=== PATIENT | female | born 1965 | race Caucasian/White ===

== ENCOUNTER 2022-03-20 05:08 | Observation (INO) ==
--- NOTE | 2022-02-13 12:11 | PAT Medication Instructions ---
Medication Instructions Date of Service February 13, 2022 Home Medications ascorbic acid (vitamin C) 100 mg tablet 100 mg PO DAILY calcium 100 mg capsule 100 mg PO QAM calcium phosphate,dibasic 77 mg-vitamin D3 400 unit tablet 1 tab PO QAM meloxicam 15 mg tablet 15 mg PO QAM PRN vitamin E 400 unit tablet 400 unit PO QAM ASK your surgeon for instructions meloxicam 15 mg tablet 15 mg PO QAM PRN STOP taking 2 weeks before surgery vitamin E 400 unit tablet 400 unit PO QAM DO NOT take the morning of surgery ascorbic acid (vitamin C) 100 mg tablet 100 mg PO DAILY calcium 100 mg capsule 100 mg PO QAM calcium phosphate,dibasic 77 mg-vitamin D3 400 unit tablet 1 tab PO QAM OTHERWISE NOTHING TO EAT OR DRINK AFTER MIDNIGHT Other Notes If you have any questions please call us at [phone] or [phone] or [phone] or [phone]
--- NOTE | 2022-02-18 10:26 | Anesthesiology Consultation ---
Date of Service February 18, 2022 Assessment & Plan (1) Encounter for pre-operative examination: - COVID screening: Per assessment on 02/18/2022: Travel screen negative, no known COVID-19 positive contacts or current COVID-19 related symptoms in past 2 weeks. Pt vaccinated. Surgeon arranging preop COVID testing, scheduled 03/18/2022. Awaiting results. Chart Review Chart Review: Acceptable Risk for Surgery and Patient seen in Pre Admission Testing Teaching & Discussion Pre-Anesthesia Teaching/Discussion Notes: Instructed NPO after midnight before surgery, except medications with 15 cc of water. Medication instructions provided according to the PAT guidelines. History Surgery Operation Date: 03/20/22 11:20 Proposed Procedures p Right Total Hip Arthroplasty Anterior - Nahum Farias DO Height/Weight Height: 5 ft 6 in Weight: 73.4 kg Allergies Allergy/AdvReac Type Severity Reaction Status Date / Time Penicillins Allergy Severe RASH Verified 02/13/22 07:43 Medications Home Medications Medication Instructions Recorded Confirmed Last Taken ascorbic acid (vitamin C) 100 mg 100 mg PO DAILY 02/13/22 02/13/22 Unknown tablet calcium 100 mg capsule 100 mg PO QAM 02/13/22 02/13/22 Unknown calcium phosphate,dibasic 77 1 tab PO QAM 02/13/22 02/13/22 Unknown mg-vitamin D3 400 unit tablet meloxicam 15 mg tablet 15 mg PO QAM PRN 02/13/22 02/13/22 Unknown vitamin E 400 unit tablet 400 unit PO QAM 02/13/22 02/13/22 Unknown Past Medical History Medical History (Updated 02/18/22 @ 10:35 by Esther Cooper PA-C) Granuloma annulare History of anesthesia reaction states had low bp after tubal History of blood transfusion 2013 s/p L KEYA Patient denies h/o stroke, seizures, heart attack, heart failure, DM, HTN, or blood clots. Exercise / Class Metabolic Activity II 4-5 Yardwork/Stairs/Walk up hill (denies CP or SOB with 1 FOS) Past Surgical History Surgical History History of bilateral tubal ligation S/P hip replacement 2013-left- states had blood loss and had to receive blood transfusion post-op Past Anesthesia History No Family Hx of Anesthesia Complications and Other (hypotension with tubal ligation) History of PONV No Hx of PONV and No Hx of Motion Sickness Social History Smoking Status: Never smoker Do You Dip or Chew Tobacco: No Hx Alcohol Use: Yes (occasionally) Alcohol type: wine and hard liquor alcohol intake frequency: a few times a month Hx Substance Use: No substance use type: does not use Review of Systems Patient denies chest pain, shortness of breath, dyspnea on exertion, snoring, witnessed apneas, reflux, fever, chills, cough, wheezing, or palpitations. Physical Exam Vital Signs Vitals BP 115/76 P 66 TEMP 98.3 SP02 98% on RA RESP 17 Physical Full cervical extension range of motion without pain TMD 3.5 finger breaths Mallampati Score 3 Dentition: intact, missing several left upper side teeth; denies loose or chipped teeth, implants or bridges Lungs: normal respiratory effort. Clear throughout to auscultation, no adventitious breath sounds Cardiac: regular rate and rhythm, no murmurs noted Carotid arteries: negative bruit bilat Lab Results Anesthesia Preop Results Results Anesthesia Widget: WBC 4.83 K/uL (4.8-10.8) 02/18/22 Hgb 13.1 g/dL (12.0-16.0) 02/18/22 Hct 39.9 % (37-47) 02/18/22 Plt 242 K/uL (130-400) 02/18/22 Na 143 mmol/L (136-145) 02/18/22 K 4.2 mmol/L (3.5-5.1) 02/18/22 Cl 108 mmol/L (98-107) H 02/18/22 CO2 32 mmol/L (21-32) 02/18/22 BUN 15 mg/dl (6-23) 02/18/22 Creat 0.59 mg/dl (0.6-1.2) L 02/18/22 Glucose Level 84 mg/dl (70-99(Fasting)) 02/18/22 PT 10.8 Seconds (9.0-12.0) 02/18/22 PTT 27.1 Seconds (21.0-31.0) 02/18/22 INR 1.0 (0.9-1.1) 02/18/22 Blood Type A Positive 02/18/22 Antibody Screen NEGATIVE 02/18/22 Testing Electrocardiogram Date: 02/18/22 NSR, rate 65 bpm Chest X-Ray Date: 02/18/22 No pneumothorax. No pleural effusions. The cardiac silhouette is top normal in size. Linear densities within the bilateral mid lung zones favor scarring or subsegmental atelectasis. Otherwise, the lungs are clear. No evidence for pulmonary edema. IMPRESSION: No acute process.
--- NOTE | 2022-03-19 13:23 | History & Physical Report ---
Date of Service March 19, 2022 Assessment & Plan (1) Osteoarthritis of right hip: We will proceed with a right anterior total hip arthroplasty. Postoperatively she will be started on aspirin for DVT prophylaxis and kept overnight in the hospital for postoperative medical management. She plans to use [facility] upon discharge. History of Present Illness Chief Complaint: Osteoarthritis right hip. Primary Care Provider: ANIBAL PCP Sarah is a pleasant 56-year-old female who had a left hip replacement done by Dr. Araujo in 2013. She is done well with that. Unfortunate she is dealing with right hip pain. X-rays and clinical examination have been diagnostic for advanced arthritis of the right hip. After failing conservative treatment, she has elected proceed with a right total hip arthroplasty. Allergies Allergy/AdvReac Type Severity Reaction Status Date / Time Penicillins Allergy Severe RASH Verified 02/13/22 07:43 Home Medications Medication Instructions Recorded Confirmed Type ascorbic acid (vitamin C) 100 mg 100 mg PO DAILY 02/13/22 02/13/22 History tablet calcium 100 mg capsule 100 mg PO QAM 02/13/22 02/13/22 History calcium phosphate,dibasic 77 1 tab PO QAM 02/13/22 02/13/22 History mg-vitamin D3 400 unit tablet meloxicam 15 mg tablet 15 mg PO QAM PRN 02/13/22 02/13/22 History vitamin E 400 unit tablet 400 unit PO QAM 02/13/22 02/13/22 History Past Med/Surg History Medical History Granuloma annulare History of anesthesia reaction states had low bp after tubal History of blood transfusion 2013 s/p L KEYA Surgical History History of bilateral tubal ligation S/P hip replacement 2014-left- states had blood loss and had to receive blood transfusion post-op Social History Smoking Status: Never smoker Second Hand Exposure: No; Hx Alcohol Use: Yes (occasionally) Alcohol type: wine and hard liquor Hx Substance Use: No Preferred Language: Malay Communication Ability: Effective Hand Washer Required: No Beliefs That Will Affect Care: None Current Living Situation: Alone Current Living Situation Comment: arturo Feels Safe at Home: Yes Assistive Devices: Glasses Review of Systems All systems reviewed & are unremarkable except as noted in HPI & below. Physical Exam On physical examination the right hip, she has decreased range of motion. She has pain with forced internal rotation. Most of her pain is in the groin. Constitutional WD/WN, vitals as above Eyes PERRL, conjunctivae normal, anicteric sclerae ENMT external ear and nose normal, oropharynx normal Neck trachea midline, no thyromegaly Respiratory normal respiratory effort Cardiovascular RRR, no murmur, no edema Gastrointestinal (Abdomen) normal bowel sounds, soft, nontender, no hepatosplenomegaly Psychiatric A+Ox3, euthymic affect Results & Data Results & Data Laboratory Results . Diagnostic Findings X-rays of the right hip show advanced osteoarthritis with joint space narrowing, osteophyte formation, and [id number] articulation. PG Care Time/CCT Total # of Minutes Spent Total Time Spent with Patient: Total time spent is greater than 50% in coordination of care (as documented) at patient's floor/unit and/or counseling patient: Coding Level of Care Code None Diagnoses Osteoarthritis of right hip M16.11
[~2022-03-20 05:08] MED LIST: ALLERGY Noted to ORDERED Medication SCH
[2022-03-20] MEDS ORDERED: Ketorolac (*for OR use only*) 30 MG, dexAMETHasone 4 MG, KETAMINE HCL (**OR use only) 1... INFIL SCH (06:00)
[2022-03-20] MEDS ORDERED: LR 60ML/HR IV SCH (06:00)
[2022-03-20] MEDS ORDERED: ACETAMINOPHEN 500 MG TAB PO SCH (06:00)
[2022-03-20] MEDS ORDERED: ceFAZolin 2000MG 2,000 MG/15 ML SYR IV SCH (06:00)
[2022-03-20] MEDS ORDERED: GABAPENTIN 600 MG DOSE PO SCH (06:00)
[2022-03-20] MEDS ORDERED: dexAMETHasone 4 MG TAB PO SCH (06:00)
[2022-03-20] MEDS ORDERED: LR 500ML BOLUS, THEN 15ML/HR IV SCH (06:00)
[2022-03-20] MEDS ORDERED: TRANEXAMIC ACID 1,000 MG **IV Pre-op IV SCH (06:00)
[2022-03-20] MEDS ORDERED: TRANEXAMIC ACID 1,000 MG **IV Intra-op IV SCH (06:00)
[2022-03-20] MEDS ORDERED: ceFAZolin 2,000 MG/15 ML IV PUSH IV ONE (06:04)
[2022-03-20] MEDS ORDERED: BUPIVACAINE 0.5 % 5 MG/1 ML PF 10ML VIAL ONE (06:14)
[2022-03-20] MEDS ORDERED: MIDAZOLAM HCL 1 MG/ML 2ML VIAL ONE (06:37)
[2022-03-20] MEDS ORDERED: fentaNYL citrate 100 MCG/2 ML VIAL ONE (06:37)
[2022-03-20] MEDS ORDERED: LIDOCAINE 2% 2 ML VIAL/AMP(20MG/ML) INFIL ONE (06:40)
[2022-03-20] MEDS ORDERED: PROPOFOL IV EMULSION 10 MG/ML 20 ML VIAL IV ONE ×2 (06:40→08:30)
--- NOTE | 2022-03-20 06:47 | History & Physical Bridge Note ---
Date of Service March 20, 2022 History & Physical Bridge Note I have examined the patient, reviewed the History & Physical and in the interval since the performance of the History & Physical I have noted the following changes of clinical significance: no changes noted
[2022-03-20] MEDS ORDERED: ORTHO JOINT ANESTHETIC ONE (07:08)
[2022-03-20] MEDS ORDERED: FLUMAZENIL 0.1 MG/1 ML 10 ML VIAL IV PRN (08:04)
[2022-03-20] MEDS ORDERED: fentaNYL citrate 100 MCG/2 ML VIAL IV PRN (08:04)
[2022-03-20] MEDS ORDERED: ATROPINE SULFATE 0.1 MG/ML 10ML SYR IV PRN (08:04)
[2022-03-20] MEDS ORDERED: HYDROmorphone INJ 1 MG/ML SYRINGE IV PRN (08:04)
[2022-03-20] MEDS ORDERED: PROMETHAZINE HCL 12.5 MG in SODIUM CHLORIDE 0.9% 50 ML IV PRN (08:04)
[2022-03-20] MEDS ORDERED: ONDANSETRON INJ 2 MG/ML 2 ML VIAL IV PRN ×2 (08:04→09:43)
[2022-03-20] MEDS ORDERED: ePHEDrine sulfate 50 MG/ML AMP IV PRN (08:04)
[2022-03-20] MEDS ORDERED: NALOXONE HCL 0.4 MG/1 ML VIAL/CARP IV PRN ×2 (08:04→09:43)
--- NOTE | 2022-03-20 08:06 | Operative Report ---
PG Post Operative Report Pre & Post Diagnosis Operation Date: 03/20/22 07:00 Pre-Op Diagnosis: Right Hip Degerative Joint Disease Post-Op Diagnosis: Right Hip Degerative Joint Disease I identified the patient and participated in the time-out.: Yes Procedure Operation Date: 03/20/22 07:00 Actual Procedures p Right Total Hip Arthroplasty Anterior(Right) - Nahum Farias DO Surgeon Nahum Farias DO Display Designer Outside Nahum Srinivasan PAC Estimated Blood Loss 200 Findings Consistent with Post-Op Diagnosis Specimens Right femoral head Complications none Disposition Disposition: Recovery Room Indications Sarah is a pleasant 56-year-old female who is been dealing with chronic increasing right hip and groin pain. X-rays and clinical examination were diagnostic for advanced arthritis of the right hip. After failing conservative treatment, she elected proceed with a right anterior total hip arthroplasty. Description of Procedure Implants used I used a ZimmerBiomet total hip arthroplasty system with a size 3 standard offset Avenir Complete stem, a 50 mm G7 cup with a 25mm screw, an E1 polyethylene liner, a 36 mm ceramic head with a +3.5 neck. Sarah arrived at the hospital for the above procedure. She was seen in the preoperative holding area and the operative extremity was identified and signed. She was given a spinal anesthetic, a preoperative antibiotic, and TXA. She was then taken back to the operating room and laid on the table in the supine position. She was given basic sedation. The operative leg was secured to a Puristst leg positioner. The hip was then prepped and draped in sterile fashion. A timeout was done and the patient and the operative extremity was properly identified. An anterior approach was used. Dissection was taken down through the fascia and the tensor muscle belly was retracted laterally and the rectus was retracted medially. The circumflex vessels were identified and ligated. The capsule was then incised and tagged for later repair. The femoral neck was then cut and the femoral head was removed. The acetabulum was exposed. Time was spent doing a complete circumferential labral release. Sequential reaming of the acetabulum up to a size 49 reamer was done. Final reamings were done under fluoroscopy to ensure appropriate version. A Biomet 50mm G7 cup was then impacted into place. A single 25 mm screw was placed. The E1 polyethylene liner was then snapped into place. Surrounding soft tissues were then injected with 100 cc of an orthopedic pain control cocktail. The proximal femur was then exposed. Sequential broaching up to a size 3 broach was done. Off that broach a size 36 head with a +3.5 neck was trialed. The hip was reduced and fluoroscopic images showed anatomic alignment of the implants in acceptable length. The broach was removed. The final size 3 standard offset Avenir Complete stem was then impacted into place. A ceramic 36mm head with a +3.5 neck was then impacted onto the stem and the hip was reduced. Final fluoroscopic images showed anatomic alignment of the hip. The capsule was then closed with #1 Vicryl suture. A dilute betadyne lavage was then done for 3 minutes. The joint was then irrigated with normal saline solution. The fascia was closed with #1 PDS suture. Skin was closed with 2-0 Vicryl, matthew, and a Silverlon dressing. She was then transferred to a hospital bed and taken to the post anesthesia care unit in stable condition. She tolerated the procedure well. Nahum Srinivasan PA-C, was present for the entire procedure. He was critical for patient positioning, prepping, draping, retraction exposure, wound closure and application of sterile dressing. I attest to the content of the Intraoperative Record and any orders documented therein. Any exceptions are noted below.
--- NOTE | 2022-03-20 09:21 | Fluoroscopy Report ---
FL hip RT 1V CLINICAL HISTORY: RIGHT ANTERIOR KEYA COMPARISON STUDY: None FLUOROSCOPY TIME: 18 seconds. FLUOROSCOPIC IMAGES: 2 FINDINGS: Fluoroscopic images were provided status post right total hip replacement. IMPRESSION: Status post right total hip replacement. ACT 112: Negative or not required by law. Electronically signed by: Mahad Francis M.D. 03/20/2022 9:19 AM
--- NOTE | 2022-03-20 09:24 | XRay Report ---
XR hip 1V RT w pelvis CLINICAL HISTORY: Postoperative evaluation. COMPARISON: Right hip radiographs January 14, 2022. FINDINGS: Alignment of the total right hip arthroplasty is anatomic. There is no periprosthetic frac ture or unexpected radiopaque foreign body. There are skin matthew. Left hip arthroplasty is noted wi th cerclage wire. Pelvic calcifications represent phleboliths. IMPRESSION: Expected findings following total right hip arthroplasty. ACT 112: Negative or not required by law. Electronically signed by: Perez Olguin M.D. 03/20/2022 9:23 AM
--- NOTE | 2022-03-20 09:32 | Anesthesiology Progress Note ---
Date of Service March 20, 2022 Anesthesia Post Procedure Vital Signs Vital Signs: Temp Pulse Pulse Resp BP Pulse Ox 03/20/22 09:25 63 16 95/58 L 96 03/20/22 09:15 65 16 99/60 L 96 03/20/22 09:05 36.4 C L 64 16 96/56 L 96 03/20/22 08:55 67 16 102/51 L 96 03/20/22 08:45 66 16 95/54 L 97 03/20/22 08:35 66 16 93/55 L 100 03/20/22 08:27 36.2 C L 66 16 101/64 98 03/20/22 05:47 37.1 C 68 20 118/76 96 Transfer of Care Handoff Completed per policy Notes Mental Status: alert / awake / arousable Patient Amnestic to Procedure: Yes Nausea / Vomiting: adequately controlled Pain: adequately controlled Airway Patency, RR, SpO2: stable & adequate BP & HR: stable & adequate Hydration State: stable & adequate Anesthetic Complications: no major complications apparent
[2022-03-20] MEDS ORDERED: HYDROmorphone INJ 0.5 MG/0.5 ML SYR IV PRN (09:43)
[2022-03-20] MEDS ORDERED: bisacodyL 10 MG SUPP PR PRN (09:43)
[2022-03-20] MEDS ORDERED: MAGNESIUM HYDROXIDE SUSP 30 ML UDC PO PRN (09:43)
[2022-03-20] MEDS ORDERED: METOCLOPRAMIDE HCL INJ 5 MG/ML 2 ML VIAL IV PRN (09:43)
[2022-03-20] MEDS: SODIUM CHLORIDE 0.9% 1000ML 1,000 ML IV SCH ×2 (09:45→20:38)
[2022-03-20] MEDS: DOCUSATE SODIUM 100 MG CAP PO SCH ×2 (10:42→21:02)
[2022-03-20] MEDS: MULTIVITAMIN TAB PO SCH (10:42)
[2022-03-20] MEDS: ASPIRIN 81 MG ECTAB PO SCH ×2 (10:42→21:02)
[2022-03-20] MEDS: KETOROLAC 30 MG/ML VIAL IV SCH ×3 (10:43→21:03)
--- NOTE | 2022-03-20 11:11 | Anesthesiology Progress Note ---
Date of Service March 20, 2022 Anesthesia Post Procedure Vital Signs Vital Signs: Temp Pulse Pulse Resp BP Pulse Ox 03/20/22 10:40 36.7 C 76 17 103/68 95 03/20/22 10:10 74 16 97/61 L 96 03/20/22 09:40 36.4 C L 66 18 93/54 L 96 03/20/22 09:25 63 16 95/58 L 96 03/20/22 09:15 65 16 99/60 L 96 03/20/22 09:05 36.4 C L 64 16 96/56 L 96 03/20/22 08:55 67 16 102/51 L 96 03/20/22 08:45 66 16 95/54 L 97 03/20/22 08:35 66 16 93/55 L 100 03/20/22 08:27 36.2 C L 66 16 101/64 98 03/20/22 05:47 37.1 C 68 20 118/76 96 Transfer of Care Handoff Completed per policy Notes Mental Status: alert / awake / arousable Patient Amnestic to Procedure: Yes Nausea / Vomiting: adequately controlled Pain: adequately controlled Airway Patency, RR, SpO2: stable & adequate BP & HR: stable & adequate Hydration State: stable & adequate Neuraxial Anesthesia: was administered and sensory block is resolving Anesthetic Complications: no major complications apparent
[2022-03-20] MEDS: ACETAMINOPHEN 500 MG TAB PO SCH ×2 (14:11→21:03)
[2022-03-20] MEDS: ceFAZolin 2000MG 2,000 MG/15 ML SYR IV SCH ×2 (14:11→23:10)
[2022-03-20] MEDS ORDERED: SENNA 8.6 MG TAB PO SCH (21:00)
[2022-03-20] MEDS: oxyCODONE HCL IR 5 MG TAB (IMMEDIATE RELEASE) PO PRN (22:41)
[2022-03-21] MEDS: KETOROLAC 30 MG/ML VIAL IV SCH ×2 (03:47→08:27)
[2022-03-21] MEDS: ACETAMINOPHEN 500 MG TAB PO SCH (06:19)
--- NOTE | 2022-03-21 06:53 | Orthopedic Progress Note ---
Date of Service March 21, 2022 Assessment & Plan (1) Status post right hip replacement: Overall she is doing very well. She is having too much pain in the right hip. She will be seen by physical therapy today for ambulation and range of motion exercises. She is on aspirin for DVT prophylaxis. She can be discharged home later today. She will follow-up with orthopedics in 2 weeks. River Smith was seen and examined at bedside this morning. Overall she is doing very well. She is not having much pain in the right hip. She has been up and ambulating to the bathroom. She has no complaints. Review of Systems All systems reviewed & are unremarkable except as noted in HPI & below. Physical Exam On physical examination of the right hip, the dressing is clean and dry. Her leg lengths are equal. She has active dorsiflexion plantarflexion of her right ankle.. Results & Data Results & Data Laboratory Results . Diagnostic Findings Postoperative x-rays of the right hip show the prosthesis to be in anatomic alignment without any evidence of fracture, screws, or loosening. PG Care Time/CCT Total # of Minutes Spent Total Time Spent with Patient: Total time spent is greater than 50% in coordination of care (as documented) at patient's floor/unit and/or counseling patient: Coding Level of Care Code 05051 Post Operative Follow-Up Diagnoses Status post right hip replacement Z96.641
--- NOTE | 2022-03-21 06:54 | Discharge Summary ---
Date of Service March 21, 2022 Admission HPI (Per Admitting) Sarah is a pleasant 56-year-old female who had a left hip replacement done by Dr. Araujo in 2013. She is done well with that. Unfortunate she is dealing with right hip pain. X-rays and clinical examination have been diagnostic for advanced arthritis of the right hip. After failing conservative treatment, she has elected proceed with a right total hip arthroplasty. Admission Exam (Per Admitting) On physical examination the right hip, she has decreased range of motion. She has pain with forced internal rotation. Most of her pain is in the groin. Principal Diagnosis Same as "Discharge Diagnosis" noted below under Discharge Instructions. Discharge Exam On physical examination of the right hip, the dressing is clean and dry. Her leg lengths are equal. She has active dorsiflexion plantarflexion of her right ankle.. Discharge Data Procedures Performed Operation Date: 03/20/22 07:00 Actual Procedures p Right Total Hip Arthroplasty Anterior(Right) - Nahum Farias DO Ordered Studies 03/20/22 07:00 FL hip RT 1V Routine Hospital Course (1) Status post right hip replacement: On March 20, 2022 Sarah arrived at [facility] and underwent a right anterior hip replacement without complication. She had a spinal anesthetic. Postoperatively she was started on aspirin for DVT prophylaxis and transferred to the general orthopedic floors. Her hospital course was uneventful. On postop day #1, her vital signs were stable and her pain was well controlled. She was able to participate well with physical therapy doing ambulation and range of motion exercises. She was then discharged home. She will follow-up with orthopedics in 2 weeks. PG Care Time/CCT Total # of Minutes Spent Total Time Spent with Patient: Total time spent is greater than 50% in coordination of care (as documented) at patient's floor/unit and/or counseling patient: Discharge Plan Discharge Items Patient Disposition: Home - Home Health Services Reason For Visit: Right Hip Degerative Joint Disease Discharge Diagnosis: Right hip replacement Activity: Per Instructions section Non-emergency contact: Surgeon Call non-emergency contact if: your wound has increased redness and your wound has increased drainage Follow-up/Referrals: PCP,NO [Primary Care Provider] - Diet: Regular Addtl Attending Provider Instructions: Activity and Therapy Recommendations: * If you are using [facility] then therapy will be provided at your home until they feel you have accomplished all of your goals. * If you are using [facility] then Physical Therapy will be provided until they feel you are ready to start Outpatient Physical Therapy. * If you are not using home therapy then Outpatient Physical Therapy should start about 3-5 days from your day of surgery. Therapy will last about 6-10 weeks * You were shown a series of exercises in the hospital. Do these exercises three times each day including the exercises you were shown in physical therapy. * Get up and walk several times each day.~ For the first four weeks, try not to stand or walk for more than one hour at a time. If you do stand or walk for more than one hour, you will not hurt anything, but your leg will likely swell.~~ * As you feel comfortable, you may change from the walker or crutches to a cane and~then to independent walking. Medications: * Narcotic You will likely be sent home from the hospital with a prescription for the narcotic pain medication that worked best throughout your stay. * Aspirin Most patients will be required to take Aspirin 81mg twice a day for 6 weeks after surgery. This is obtained [id number] and a prescription is not necessary. * Other medications may be prescribed for specific circumstances. If you have any questions, please call the office at . * Resume previous home medications unless otherwise instructed TEDs/Elastic Stockings: The white elastic stockings help limit swelling and prevent blood clots from forming in your legs. The more you wear them, the more they work. Wear them for six weeks. Dressing Care: Leave the Silverlon dressing in place for 7 days. After 7 days you may remove the dressing. If the incision is not draining then you may leave the matthew open to air. If there is a little bit of drainage or if the matthew are getting stuck on your clothing then cover the incision with a dry dressing. The matthew will be removed at your 2 week follow-up appointment. Showering: You may shower with the Silverlon dressing in place. Do not let the shower spray hit the dressing directly. Pat the Silverlon dressing dry. If the dressing becomes wet underneath, then simply remove the dressing. Keep the incision dry until you are 7 days out from the day of surgery. After 7 days you may remove the Silverlon dressing and shower with the matthew exposed. Let soapy water run over the matthew and pat them dry. Do not scrub or soak the incision. Things To Watch For: * Drainage from the incision site that occurs more than one week after your surgery. * Increased redness at the incision site. * Fever above 102 degrees Fahrenheit. * Unusual chest pain or shortness of breath. * Call [facility] at with any of the above problems Follow-Up Visit: Follow-up with Dr. Farias's PA (Nahum Srinivasan) 2-3 weeks after your day of surgery. He will remove your matthew and answer any questions. If you have any additional questions or concerns, Dr Farias is usually in the office at the same time and will be available An appointment was probably scheduled when you signed-up for surgery in the office. If you have any questions call Office Instructions: More detailed instructions as well as Frequently Asked Questions were provided in a folder by our office when you signed-up for surgery. Please review these instructions when you get home. If you have any further questions or concerns, please feel free to call the office at [phone] Pending Studies at Discharge: No Stand-Alone Forms: [facility], Smoking Cessation Medications and DC Order Prescriptions: New oxycodone-acetaminophen 5-325 mg tablet 1 tab PO Q6H PRN (Reason: pain) Qty: 30 RF: 0 aspirin 81 mg Tablet,Delayed Release (Dr/Ec) 81 mg PO BID 42 Days Qty: 0 RF: 0 Continued ascorbic acid (vitamin C) 100 mg Tablet 100 mg PO DAILY RF: 0 calcium 100 mg Capsule 100 mg PO QAM RF: 0 Vitamin D (with calcium) 77-400 mg-unit Tablet 1 tab PO QAM RF: 0 vitamin E 400 unit Tablet 400 unit PO QAM RF: 0 meloxicam 15 mg tablet 15 mg PO QAM PRN (Reason: Pain) RF: 0 Discharge Orders: Discharge Order (Routine); Ordered 03/21/22 Ordered By: Nahum Farias Admission Data Admit Date/Time: 03/20/22 08:29 Attending Provider: Nahum Farias Admit Provider: Nahum Farias Primary Care Provider: PCP,ANIBAL
[2022-03-21] MEDS ORDERED: dexAMETHasone 4 MG TAB PO SCH (08:00)
[2022-03-21] MEDS: oxyCODONE HCL IR 5 MG TAB (IMMEDIATE RELEASE) PO PRN (08:27)
[2022-03-21] MEDS: MULTIVITAMIN TAB PO SCH (08:27)
[2022-03-21] MEDS: ASPIRIN 81 MG ECTAB PO SCH (08:27)
[2022-03-21] MEDS: DOCUSATE SODIUM 100 MG CAP PO SCH (08:27)
== END 2022-03-21 11:48 | disposition home health service (06) ==
LOC: 3E 05:08 → ASU 05:08